=== PATIENT | male | born 1985 | race Caucasian/White ===

== ENCOUNTER 2018-10-14 07:07 | Emergency (ER) | payer SELFPAY ==
[~2018-10-14] VITALS: Ht 175.3 cm; Wt 70.5 kg
[2018-10-14] MEDS ORDERED: AMOXICILLIN/CL875 MG PO (07:30)
[2018-10-14 08:00] VITALS: BP 159/94
[2018-10-14] MEDS ORDERED: AMOXICILLIN500 M2 PO (09:07)
== END 2018-10-14 08:00 | disposition home or self-care (01) | DRG 159 ==
LOC: ED 07:07
DX: K03.81 Cracked tooth (principal); F17.210 Nicotine dependence, cigarettes, uncomplicated

== ENCOUNTER 2018-10-15 09:39 | Emergency (ER) | payer SELFPAY ==
[~2018-10-15] VITALS: Ht 175.3 cm; Wt 65.0 kg
[~2018-10-15 09:39] MED LIST: AMOXICILLIN/CL875 MG PO; AMOXICILLIN500 M2 PO
[2018-10-15 10:44] VITALS: BP 131/84
== END 2018-10-15 10:44 | disposition home or self-care (01) | DRG 159 ==
LOC: ED 09:39
DX: K04.7 Periapical abscess without sinus (principal); F17.210 Nicotine dependence, cigarettes, uncomplicated

== ENCOUNTER 2018-12-04 21:52 | Emergency (ER) | payer SELFPAY ==
[~2018-12-04] VITALS: Ht 177.8 cm; Wt 68.1 kg
[2018-12-04] MEDS ORDERED: VOLTAREN - GENE75 MG PO (22:03)
[2018-12-04] MEDS ORDERED: CLINDAMYCIN300 M1 PO (22:03)
[2018-12-04] MEDS ORDERED: AMOXICILLIN500 MG PO (22:13)
[2018-12-04 22:25] VITALS: BP 128/89
== END 2018-12-04 22:28 | disposition home or self-care (01) | DRG 159 ==
LOC: ED 21:52
DX: K04.7 Periapical abscess without sinus (principal); K02.9 Dental caries, unspecified; F17.210 Nicotine dependence, cigarettes, uncomplicated

== ENCOUNTER 2019-04-20 | Emergency (ER) | payer SELFPAY ==
[~2019-04-20] MED LIST changes: +AMOXICILLIN500 MG PO; +CLINDAMYCIN300 M1 PO; +VOLTAREN - GENE75 MG PO
[2019-04-20] MEDS ORDERED: ALBUTEROL108 MCG/AC IN (11:31)
[2019-04-20] MEDS ORDERED: MEDDOSEPAK PO (14:26)
== END 2019-04-20 14:35 | disposition home or self-care (01) | DRG 558 ==
DX: M77.9 Enthesopathy, unspecified (principal)

== ENCOUNTER 2019-07-05 | Emergency (ER) | payer OTHER ==
[~2019-07-05] MED LIST changes: +ALBUTEROL108 MCG/AC IN; +MEDDOSEPAK PO
[2019-07-05 14:53] LABS: IMMATURE GRANULOCYTES 0.4 % (0.0-5.0); MEAN CELL VOLUME 85.7 fL CALC (80.0-100.0); MEAN CORPUSCULAR HGB 29.3 pG CALC (26.0-32.0); MEAN CORPUSCULAR HGB CONC 34.2 g/dL CAL (32.0-36.0); NEUT# 5.72 thou/uL (1.82-7.42); RED BLOOD COUNT 5.52 mill/uL (4.70-6.10); RED CELL DISTRI WIDTH 12.9 % (11.5-15.5)
[2019-07-05 14:54] LABS: HEMATOCRIT 47.3 % (39.0-50.0); HEMOGLOBIN 16.2 g/dl (14.0-18.0)
[2019-07-05 15:06] LABS: ALBUMIN 4.5 g/dL (3.2-5.0); ALKALINE PHOSPHATASE 111 u/l (38-126); BILIRUBIN, TOTAL 0.6 mg/dL (0.0-1.4); BUN 13 mg/dL (9-20); BUN/CREATININE RATIO 16 (12-20 (CALC)); CARBON DIOXIDE 25 mmol/l (22-30); CHLORIDE 100 mmol/l (95-108); CREATININE 0.8 mg/dL (0.7-1.3); GFR > 60 ML/MIN (>=60 (CALC)); GFR FOR AFR.AMER. > 60 ML/MIN (>=60 (CALC)); LIPASE 62 u/l (23-300); POTASSIUM 4.1 mmol/l (3.5-5.1); SGOT/AST 39 u/l (17-59); TOTAL PROTEIN 8.7 g/dL (6.3-8.2)
[2019-07-05 15:07] LABS: ANION GAP 14 (6-22 (CALC)); SODIUM 135 mmol/l (137-146)
== END 2019-07-05 16:49 | disposition home or self-care (01) | DRG 392 ==
DX: R19.7 Diarrhea, unspecified (principal); F15.90 Other stimulant use, unspecified, uncomplicated; F17.200 Nicotine dependence, unspecified, uncomplicated

== ENCOUNTER 2020-03-21 13:46 | Emergency (ER) | payer SELFPAY ==
[~2020-03-21] VITALS: Ht 177.8 cm; Wt 75.0 kg
[2020-03-21] MEDS ORDERED: KEFLEX500 M1 PO (16:47)
[2020-03-21 16:56] VITALS: BP 115/71
== END 2020-03-21 16:56 | disposition home or self-care (01) | DRG 603 ==
LOC: ED 13:46
DX: L02.414 Cutaneous abscess of left upper limb (principal); J45.909 Unspecified asthma, uncomplicated; F17.210 Nicotine dependence, cigarettes, uncomplicated

== ENCOUNTER 2020-05-01 14:49 | Emergency (ER) | payer SELFPAY ==
[~2020-05-01] VITALS: Ht 177.8 cm; Wt 76.2 kg
[~2020-05-01 14:49] MED LIST changes: +KEFLEX500 M1 PO
[2020-05-01 15:49] LABS: HEMATOCRIT 43.4 % (39.0-50.0); HEMOGLOBIN 14.7 g/dl (14.0-18.0); IMMATURE GRANULOCYTES 0.3 % (0.0-5.0); MEAN CELL VOLUME 85.9 fL CALC (80.0-100.0); MEAN CORPUSCULAR HGB 29.1 pG CALC (26.0-32.0); MEAN CORPUSCULAR HGB CONC 33.9 g/dL CAL (32.0-36.0); NEUT# 5.12 thou/uL (1.82-7.42); RED BLOOD COUNT 5.05 mill/uL (4.70-6.10); RED CELL DISTRI WIDTH 12.6 % (11.5-15.5)
[2020-05-01 15:54] LABS: GFR > 60 ML/MIN (>=60 (CALC)); GFR FOR AFR.AMER. > 60 ML/MIN (>=60 (CALC))
[2020-05-01 16:08] LABS: ALBUMIN 4.2 g/dL (3.2-5.0); ALKALINE PHOSPHATASE 112 u/l (38-126); ANION GAP 12 (6-22 (CALC)); BILIRUBIN, TOTAL 0.6 mg/dL (0.0-1.4); BUN 9 mg/dL (9-20); BUN/CREATININE RATIO 12 (12-20 (CALC)); CARBON DIOXIDE 26 mmol/l (22-30); CHLORIDE 102 mmol/l (95-108); CREATININE 0.7 mg/dL (0.7-1.3); GFR > 60 ML/MIN (>=60 (CALC)); GFR FOR AFR.AMER. > 60 ML/MIN (>=60 (CALC)); POTASSIUM 3.8 mmol/l (3.5-5.1); SGOT/AST 22 u/l (17-59); SODIUM 136 mmol/l (137-146); TOTAL PROTEIN 7.5 g/dL (6.3-8.2)
[2020-05-01 17:10] VITALS: BP 121/76
== END 2020-05-01 17:11 | disposition left against medical advice (07) | DRG 69 ==
LOC: ED 14:49
PROVIDERS: Family Medicine
DX: G45.9 Transient cerebral ischemic attack, unspecified (principal); J45.909 Unspecified asthma, uncomplicated; H54.62 Unqualified visual loss, left eye, normal vision right eye; F17.210 Nicotine dependence, cigarettes, uncomplicated; Z86.73 Personal history of transient ischemic attack (TIA), and cerebral infarction without residual deficits; Z91.19 Patient's noncompliance with other medical treatment and regimen; Z20.822 Contact with and (suspected) exposure to COVID-19
CPT/HCPCS: Q9967

== ENCOUNTER 2020-06-02 06:04 | Emergency (ER) | payer MEDICAID ==
[~2020-06-02] VITALS: Ht 177.8 cm; Wt 73.0 kg
[2020-06-02 06:26] LABS: HEMATOCRIT 41.3 % (39.0-50.0); HEMOGLOBIN 13.6 g/dl (14.0-18.0); IMMATURE GRANULOCYTES 0.5 % (0.0-5.0); MEAN CELL VOLUME 86.4 fL CALC (80.0-100.0); MEAN CORPUSCULAR HGB 28.5 pG CALC (26.0-32.0); MEAN CORPUSCULAR HGB CONC 32.9 g/dL CAL (32.0-36.0); NEUT# 5.21 thou/uL (1.82-7.42); RED BLOOD COUNT 4.78 mill/uL (4.70-6.10); RED CELL DISTRI WIDTH 12.9 % (11.5-15.5)
[2020-06-02 06:34] LABS: ALBUMIN 4.1 g/dL (3.2-5.0); ALKALINE PHOSPHATASE 111 u/l (38-126); AMYLASE 39 u/l (30-110); ANION GAP 11 (6-22 (CALC)); BILIRUBIN, TOTAL 0.6 mg/dL (0.0-1.4); BUN 14 mg/dL (9-20); BUN/CREATININE RATIO 21 (12-20 (CALC)); CARBON DIOXIDE 25 mmol/l (22-30); CHLORIDE 102 mmol/l (95-108); CREATININE 0.7 mg/dL (0.7-1.3); ETHYL ALCOHOL 0 mg/dl (0-30); GFR > 60 ML/MIN (>=60 (CALC)); GFR FOR AFR.AMER. > 60 ML/MIN (>=60 (CALC)); LIPASE 92 u/l (23-300); POTASSIUM 3.6 mmol/l (3.5-5.1); SGOT/AST 24 u/l (17-59); SODIUM 135 mmol/l (137-146); TOTAL PROTEIN 7.3 g/dL (6.3-8.2)
[2020-06-02 06:46] LABS: MYOGLOBIN 29 ng/mL (0 - 121)
[2020-06-02 06:47] LABS: ACT PARTIAL THROMBO TIME 25.2 SECONDS (20.0-32.5); PROTHROMBIN TIME 9.9 SECONDS (9.0-12.5)
[2020-06-02 06:52] LABS: D-DIMER 0.2 mg/L (0.19-0.60)
[2020-06-02 11:44] VITALS: BP 119/72
== END 2020-06-02 11:46 | disposition home or self-care (01) ==
LOC: ED 06:04
PROVIDERS: Family Medicine
DX: R07.89 Other chest pain (principal); J45.909 Unspecified asthma, uncomplicated; H54.62 Unqualified visual loss, left eye, normal vision right eye; F17.200 Nicotine dependence, unspecified, uncomplicated; Z86.73 Personal history of transient ischemic attack (TIA), and cerebral infarction without residual deficits